=== PATIENT | female | born 1955 | race Caucasian/White ===

== ENCOUNTER 2018-11-13 21:28 | Emergency (ER) | payer SELFPAY ==
--- NOTE | 2018-11-13 22:06 | EDM.PDOC ---
ED HPI GENERAL MEDICAL PROBLEM - General Chief Complaint: Upper Extremity Injury/Pain Stated Complaint: PT FELL AND HURT RIGHT WRIST Time Seen by Provider: 11/13/18 21:53 Source of Information: Reports: Patient History Limitations: Reports: No Limitations - History of Present Illness INITIAL COMMENTS - FREE TEXT/NARRATIVE: HISTORY AND PHYSICAL: History of present illness: Patient is a 63-year-old female presents to the ED today with concern of right wrist injury that occurred approximately an hour prior to arrival to the ED. Patient states she is from [place] and visiting family and just got into town from a long drive from [place]. Patient states that in this house that she is staying in, the stairs are not built correctly. Patient states that a group of 4 people were going down the stairs, and 3 of them including herself, tripped on the same step that is uneven/built incorrectly. Patient states she fell down approximately a few stairs. The fourth person, the one who did not trip on the step, states that she fell sideways onto an outstretched arm with her right wrist and caught herself without hitting anything else. Patient and witness states she did not hit her head and patient states she did not lose consciousness. Patient states she did take an ibuprofen just prior to coming to the ED. Patient denies any other symptoms or concerns. Patient denies fever, chills, chest pain, shortness of breath, or cough. Denies headache, neck stiff ness, change in vision, syncope, or near syncope. Denies nausea, vomiting, abdominal pain, diarrhea, constipation, or dysuria. Has not noted any blood in urine or stool. Patient has been eating and drinking appropriately. Review of systems: As per history of present illness and below otherwise all systems reviewed and negative. Past medical history: As per history of present illness and as reviewed below otherwise noncontributory. Surgical history: As per history of present illness and as reviewed below otherwise noncontributory. Social history: See social history for further information Family history: As per history of present illness and as reviewed below otherwise noncontributory. Physical exam: General: Patient is alert, oriented, and in no acute distress. Patient sitting comfortably on exam table. HEENT: Atraumatic, normocephalic, pupils equal and reactive bilaterally, negative for conjunctival pallor or scleral icterus, mucous membranes moist, TMs normal bilaterally, throat clear, neck supple, nontender, trachea midline. No drooling or trismus noted. No meningeal signs. No hot potato voice noted. Lungs: Clear to auscultation, breath sounds equal bilaterally, chest nontender. Heart: S1S2, regular rate and rhythm without overt murmur Abdomen: Soft, nondistended, nontender. Negative for masses or hepatosplenomegaly. Negative for costovertebral tenderness. Pelvis: Stable nontender. Genitourinary: Deferred. Rectal: Deferred. Skin: Intact, warm, dry. No lesions or rashes noted. Extremities: Negative for cords or calf pain. Neurovascular unremarkable. Patient has full range of motion of right shoulder elbow and digits but has limited range of motion of right wrist due to pain. Right wrist is moderately painful to palpation around the distal radius and is edematous but non- erythematous. Neuro: Awake, alert, oriented. Cranial nerves II through XII unremarkable. Cerebellum unremarkable. Motor and sensory unremarkable throughout. Exam nonfocal. Notes: Dr. Malave verbally involved in patient care. Discussed the importance for follow-up with an orthopedic provider. Voices understanding and is agreeable to plan of care. Denies any further questions or concerns at this time. Diagnostics: hand XR, wrist XR, elbow XR Therapeutics: Short arm posterior splint (placed by nursing staff) Prescription: Offered pain medications but patient declines. Impression: Dorsal distal radius fracture, right Plan: 1. Rest, ice, elevate the affected extremity. You can apply ice 15 minutes on, 15 minutes off only over the splint. Keep the splint on until follow up with orthopedics. 2. Tylenol and/or Ibuprofen as directed for pain management or discomfort. 3. Follow up with the Orthopedic provider as discussed. The number has been provided to you above to call and set up an appointment. 4. Return to the ED as needed and as discussed. Definitive disposition and diagnosis as appropriate pending reevaluation and review of above. R forearm and wrist Pain Score (Numeric/FACES): 4 - Related Data Allergies Allergy/AdvReac Type Severity Reaction Status Date / Time No Known Allergies Allergy Verified 11/13/18 21:42 Home Meds: Home Meds Amitriptyline [Elavil] 10 mg PO QPM 11/13/18 [History] Past Medical History [employer] History: Reports: Endocrine/Metabolic History: Reports: Hypothyroidism - Past Surgical History Endocrine Surgical History: Reports: None Social & Family History - Family History Family Medical History: Noncontributory - Tobacco Use Smoking Status *Q: Never Smoker Second Hand Smoke Exposure: No - Caffeine Use Caffeine Use: Reports: Coffee - Recreational Drug Use Recreational Drug Use: No Review of Systems - Review of Systems Review Of Systems: ROS reveals no pertinent complaints other than HPI. ED EXAM, GENERAL - Physical Exam Exam: See Below (See dictation) Course - Vital Signs Last Recorded V/S: Last Vital Signs Temp 36.5 C 11/13/18 21:32 Pulse 74 11/13/18 21:32 Resp 17 11/13/18 21:32 BP 127/76 11/13/18 21:32 Pulse Ox 97 11/13/18 21:32 - Orders/Labs/Meds Orders: Active Orders 24 hr Category Date Time Status DME for Discharge [COMM] Stat Oth 11/13/18 22:50 Ordered Departure - Departure Time of Disposition: 22:58 Disposition: Home, Self-Care 01 Clinical Impression: Distal radius fracture Qualifiers: Encounter type: initial encounter Fracture type: closed Fracture morphology: unspecified fracture morphology Laterality: right Qualified Code(s): S52.501A - Unspecified fracture of the lower end of right radius, initial encounter for closed fracture - Discharge Information Referrals: PCP,None [Primary Care Provider] - Forms: ED Department Discharge Additional Instructions: The following information is given to patients seen in the emergency department who are being discharged to home. This information is to outline your options for follow-up care. We provide all patients seen in our emergency department with a follow-up referral. The need for follow-up, as well as the timing and circumstances, are variable depending upon the specifics of your emergency department visit. If you don't have a primary care physician on staff, we will provide you with a referral. We always advise you to contact your personal physician following an emergency department visit to inform them of the circumstance of the visit and for follow-up with them and/or the need for any referrals to a consulting specialist. The emergency department will also refer you to a specialist when appropriate. This referral assures that you have the opportunity for follow-up care with a specialist. All of these measure are taken in an effort to provide you with optimal care, which includes your follow-up. Under all circumstances we always encourage you to contact your private physician who remains a resource for coordinating your care. When calling for follow-up care, please make the office aware that this follow-up is from your recent emergency room visit. If for any reason you are refused follow-up, please contact the [facility] Emergency Department at and asked to speak to the emergency department charge nurse. [facility] [address] [place] [id number] [facility] [place] [facility] [address] [place] [id number] [facility] Specialty Care - Orthopedic Clinic Professional Building [address], [address] [place] [address] Dr Anand, Orthopedist [facility] [address] [place] [address] Dr Wesley - Dr Hernández - Dr Zapata [facility] [address] [place] [address] [facility] [address] [place] [address] 1. Rest, ice, elevate the affected extremity. You can apply ice 15 minutes on, 15 minutes off only over the splint. Keep the splint on until follow up with orthopedic provider. 2. Tylenol and/or Ibuprofen as directed for pain management or discomfort. 3. Follow up with the Orthopedic provider as discussed. The number has been provided to you above to call and set up an appointment. 4. Return to the ED as needed and as discussed. - My Orders Last 24 Hours: My Active Orders 11/13/18 22:50 DME for Discharge [COMM] Stat - Assessment/Plan Last 24 Hours: My Active Orders 11/13/18 22:50 DME for Discharge [COMM] Stat
--- NOTE | 2018-11-13 22:36 | CR ---
INDICATION: Elbow injury from fall TECHNIQUE: Elbow radiograph 3 views right COMPARISON: None FINDINGS: Bone: No acute fractures or aggressive bone lesions are identified. Small enthesophyte noted in the olecranon. Joint: The elbow joint is unremarkable. No significant displacement of the anterior or posterior fat pads noted to suggest an effusion. Soft tissue: Unremarkable. No radiopaque foreign bodies are seen. IMPRESSION: 1. No acute osseous injuries or abnormalities are noted. Dictated by: Joao Patiño MD @ 11/13/2018 22:35:24 (Electronically Signed)
--- NOTE | 2018-11-13 22:36 | CR ---
INDICATION: Hand injury from fall TECHNIQUE: Hand radiograph 3 views right COMPARISON: None FINDINGS: Evaluation of the digits on the lateral examination is moderately degraded due to overlapped finger positioning. Bone: Suspected cortical disruption is seen along the dorsal distal radius on the lateral exam. Mild negative ulnar variance is seen. 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 Soft tissue: Unremarkable. No radiopaque foreign bodies are seen. IMPRESSION: 1. Suspected cortical disruption is seen along the dorsal distal radius on the lateral exam. Correlation with physical exam for focal tenderness in this region is recommended to exclude an acute fracture. Dictated by Joao Patiño MD @ 11/13/2018 10:34:50 PM Dictated by: Joao Patiño MD @ 11/13/2018 22:34:53 (Electronically Signed)
--- NOTE | 2018-11-13 22:38 | CR ---
INDICATION: Wrist injury from fall TECHNIQUE: Wrist radiograph 3 views right COMPARISON: None FINDINGS: Bone: Suspected cortical disruption is seen along the dorsal distal radius on the lateral exam. Mild negative ulnar variance is seen. Joint: Unremarkable. Soft tissue: Unremarkable. No radiopaque foreign bodies are seen. IMPRESSION: 1. Suspected cortical disruption is seen along the dorsal distal radius on the lateral exam. Correlation with physical exam for focal tenderness in this region is recommended to exclude an acute fracture. Dictated by: Joao Patiño MD @ 11/13/2018 22:36:19 (Electronically Signed)
== END 2018-11-13 23:16 | disposition home or self-care (01) ==
LOC: MW.ED 21:28
DX: S52.501A Unspecified fracture of the lower end of right radius, initial encounter for closed fracture (principal); W10.9XXA Fall (on) (from) unspecified stairs and steps, initial encounter; Y92.009 Unspecified place in unspecified non-institutional (private) residence as the place of occurrence of the external cause
CPT/HCPCS: 73080-26-RT; 73080-RT; 73110-26-RT; 73110-RT; 73130-26-RT; 73130-RT; 99283-25